=== PATIENT | female | born 1975 | race Caucasian/White ===

== ENCOUNTER 2020-09-07 23:08 | Emergency (ER) | payer OTHER ==
[~2020-09-07] VITALS: Ht 157.5 cm; Wt 128.0 kg
[2020-09-07] MEDS ORDERED: LOSARTAN-HCTZ1 EAC2 PO (23:36)
[2020-09-07] MEDS ORDERED: ATENOLOL25 MG PO (23:36)
[2020-09-07] MEDS ORDERED: ESTRADIOL2 MG PO (23:37)
[2020-09-07] MEDS ORDERED: VENTOLIN HFA18 GM INH (23:37)
[2020-09-07] MEDS ORDERED: FLUOXETINE HCL20 MG PO (23:37)
[2020-09-07] MEDS ORDERED: ZOFRAN4 MG SL (23:38)
[2020-09-07] MEDS ORDERED: VENTOLIN HFA18 GM (23:38)
== END 2020-09-08 00:50 | disposition home or self-care (01) ==
LOC: ED 23:08
DX: K52.9 Noninfective gastroenteritis and colitis, unspecified (principal); I10 Essential (primary) hypertension; E66.9 Obesity, unspecified; Z88.5 Allergy status to narcotic agent; Z79.899 Other long term (current) drug therapy
CPT/HCPCS: 99283